=== PATIENT | female | born 1995 | race Caucasian/White ===

== ENCOUNTER 2023-09-08 08:56 | Outpatient (CLI) | payer OTHER, SELFPAY ==
--- NOTE | 2023-09-08 09:15 | US_ITS ---
Patient: AN MOSS Facility:?[facility] Patient ID:?[id number] Site Patient ID:?[id number]. Site :?[id number] Study:?US-OB Pelvis DATING AND VIABILITY-09/08/2023 9:45:52 AM Ordering Physician:?MEY ROBERTS Final Report: Indication: Dating and viability Technique: Transvaginal pelvic ultrasound utilizing grayscale and color flow techniques Comparison: None. Findings: Single live intrauterine with heart rate of 171 beats per minute is present. [place]-rump length averages 18 millimeters = average ultrasound age of 8 weeks 2 days with an estimated date of delivery of April 17, 2024, clinically April 18, 2024. Yolk sac measures 3 millimeters. Amniotic fluid is grossly unremarkable. The cervix is long and closed. The visualized uterus is without cysts or masses. The right ovary measures 34 x 17 x 24 millimeters and has appropriate color flow. The left ovary measures 43 x 18 x 30 millimeters and has appropriate color flow. Mildly complex cyst within the left ovary is likely a corpus luteal cyst and averages 17 millimeters. There is trace free fluid in the pelvis. Impression: Single live intrauterine with average ultrasound age of 8 weeks 2 days. Dictated by iNlo Lala MD @ 09/08/2023 3:39:28 PM Signed by:?Nilo Lala MD @09/08/2023 3:39:28 PM (Electronic Signature)
== END 2023-09-08 08:57 | disposition home or self-care (01) ==
LOC: US 08:57
PROVIDERS: PCP Family Medicine; Visit Provider Registered Nurse
DX: Z34.91 Encounter for supervision of normal pregnancy, unspecified, first trimester (principal); Z3A.08 8 weeks gestation of pregnancy
CPT/HCPCS: 76817

== ENCOUNTER 2023-09-08 10:16 | Outpatient (CLI) | payer OTHER, SELFPAY | END 2023-09-08 10:17 | disposition home or self-care (01) | PROVIDERS: PCP Family Medicine; Visit Provider Advanced Practice Midwife | DX: Z34.91 Encounter for supervision of normal pregnancy, unspecified, first trimester (principal) | CPT/HCPCS: 86592; 86703; 86704; 86706; 86762; 86787; 86803; 86850; 86900; 86901; 87086; 87340 ==